=== PATIENT | female | born 1985 | race Caucasian/White ===

== ENCOUNTER → 2016-07-25 | Outpatient (CLI) | payer BC, OTHER ==
[~2016-07-25] MED LIST: BACTROOINT TOPICALLY; COUMADIN5 PO; ENOX40SY; FERROUS325 PO; THERGRAN
--- NOTE | 2016-07-26 03:44 | REP ---
Clinical: Anatomical evaluation. Comparison: None . Findings: Examination demonstrates a single live intrauterine in cephalic presentation. motion is identified by technologist. Placenta is noted anteriorly and grade zero without evidence for placenta previa or abruption. Amniotic fluid volume is normal. Cervix measures 4.7 cm in length and appears closed. No evidence for nuchal cord. Gestational age by LMP 20 weeks 0 days with MARIBEL 12/12/2016 . Gestational age by current measurements 20 weeks 4 days with MARIBEL 12/08/2016 . FHR equals 147 beats per minute. BPD 4.8 cm 20 weeks 3 days HC 18.1 cm 20 weeks 4 days AC 15.1 cm 20 weeks 2 days FL 3.5 cm 21 weeks 1 day HL 3.1 cm 20 weeks 3 days HC/AC ratio 1.20 Estimated weight 370 grams ( 72nd percentile). Anatomical assessment demonstrates normal structures including cranium, choroid plexus, cavum, cerebellum/posterior fossa, lungs, four-chamber heart/ left ventricular outflow tract, diaphragm, stomach, cord insertion/three-vessel cord, kidneys/bladder, spine, and extremities. Limited evaluation of the facial features and right cardiac ventricular outflow tract noted. Impression: Single live intrauterine in cephalic presentation. Appropriate interval growth. Anatomical limitations as noted above. Otherwise normal examination. Signed by Tanmay Esquivel MD 07/26/2016 03:35 A
== END ==
LOC: M RAD 13:43
PROVIDERS: ATTEND Advanced Practice Midwife
DX: Z34.82 Encounter for supervision of other normal pregnancy, second trimester (principal)

== ENCOUNTER → 2016-07-26 | Outpatient (CLI) | payer BC, OTHER ==
[2016-07-26 13:06] LABS: FREE T4 0.9 NG/DL (0.76-1.46)
== END ==
LOC: M WUC 09:56
PROVIDERS: ATTEND Advanced Practice Midwife
DX: Z34.82 Encounter for supervision of other normal pregnancy, second trimester (principal)

== ENCOUNTER → 2016-09-12 | Outpatient (CLI) | payer BC, OTHER ==
[2016-09-12 13:33] LABS: BASO % 0.2 % (0.0-1.0); EOS # 0.1 K/mm3 (0.0-0.50); EOS % 1.5 % (0.0-3.0); LARGE UNSTAINED CELL # 0.1 K/mm3 (0.0-0.4); LARGE UNSTAINED CELL % 0.7 % (0.0-4.0); LYMPH # 1.2 K/mm3 (1.5-4.5); LYMPH % 14.5 % (24.0-44.0); MEAN CORPUSCULAR HEMOGLOBIN 31.3 pg (27.0-33.0); MEAN CORPUSCULAR HGB CONC 34.8 g/dl (32.0-36.5); MONO # 0.5 K/mm3 (0.0-0.8); MONO % 5.5 % (0.0-5.0); NEUTROPHILS # 6.3 K/mm3 (1.8-7.7); NEUTROPHILS % 77.7 % (36.0-66.0); PLATELET COUNT, AUTOMATED 326 k/mm3 (150-450); WHITE BLOOD COUNT 8.2 K/mm3 (4.0-10.0)
== END ==
LOC: M LAB 10:06
PROVIDERS: ATTEND Specialist
DX: Z34.82 Encounter for supervision of other normal pregnancy, second trimester (principal)

== ENCOUNTER → 2016-09-23 | Outpatient (CLI) | payer BC, OTHER | LOC: M LAB 10:30 | PROVIDERS: ATTEND Specialist | DX: Z34.82 Encounter for supervision of other normal pregnancy, second trimester (principal) ==

== ENCOUNTER → 2016-10-25 | Outpatient (CLI) | payer BC, OTHER ==
[2016-10-25 15:14] LABS: FREE T4 0.92 NG/DL (0.76-1.46)
== END ==
LOC: M WUC 09:06
PROVIDERS: ATTEND Internal Medicine Endocrinology, Diabetes & Metabolism
DX: E06.3 Autoimmune thyroiditis (principal)

== ENCOUNTER → 2016-10-25 | Outpatient (CLI) | payer BC, OTHER ==
[2016-10-25 15:14] LABS: ALBUMIN/GLOBULIN RATIO 0.79 (1.00-1.93); BILIRUBIN,DIRECT 0.1 MG/DL (0.0-0.2); BILIRUBIN,TOTAL 0.3 MG/DL (0.2-1.0); FREE T4 0.92 NG/DL (0.76-1.46); TOTAL PROTEIN 6.8 GM/DL (6.4-8.2)
== END ==
LOC: M WUC 09:03
PROVIDERS: ATTEND Advanced Practice Midwife
DX: Z34.83 Encounter for supervision of other normal pregnancy, third trimester (principal); E03.9 Hypothyroidism, unspecified

== ENCOUNTER → 2016-10-27 | Outpatient (CLI) | payer BC, OTHER ==
--- NOTE | 2016-10-27 15:44 | REP ---
Duplex extremity venous ultrasound: Left lower extremity History: Left leg pain. History of left-sided DVT. 33 weeks gestation. Patient on Lovenox. Findings: The deep veins are anechoic and fully compressible from the groin to the popliteal fossa in the left lower extremity. Color flow imaging is homogeneous. Spectral Doppler interrogation demonstrates intact respiratory variation in flow and normal manual augmentation of flow. There is no evidence of deep vein thrombosis. Impression: Negative left lower extremity duplex venous ultrasound. No evidence of deep vein thrombosis. Signed by Tree Shultz MD 10/27/2016 03:35 P
== END ==
LOC: M RAD 14:54
PROVIDERS: ATTEND Advanced Practice Midwife
DX: M79.605 Pain in left leg (principal)

== ENCOUNTER → 2016-11-16 | Outpatient (REF) | payer BC, OTHER | LOC: M LAB REF 17:00 | PROVIDERS: ATTEND Specialist | DX: Z34.83 Encounter for supervision of other normal pregnancy, third trimester (principal) ==

== ENCOUNTER 2016-12-08 13:10 | Inpatient (IN) | payer BC, OTHER ==
[~2016-12-08] VITALS: Ht 167.6 cm; Wt 108.0 kg
[2016-12-08] MEDS ORDERED: LEVO75TA4 PO (13:21)
[2016-12-08] MEDS ORDERED: HEPA10004 SC (13:21)
[2016-12-08] MEDS ORDERED: PRENTAB9 PO (13:21)
[2016-12-08 13:28] VITALS: BP 114/68
[2016-12-08 14:04] LABS: MEAN CORPUSCULAR HEMOGLOBIN 30.4 pg (27.0-33.0); MEAN CORPUSCULAR VOLUME 86.7 fl (80.0-96.0); RED CELL DISTRIBUTION WIDTH 13.8 % (11.5-14.5)
[2016-12-08] MEDS ORDERED: miSOPROStol 50 MCG 1/2 TAB (S0191) As Ordered ONE (14:09)
[2016-12-08 14:12] VITALS: BP 109/59
[2016-12-08] MEDS ORDERED: miSOPROStol 50 MCG 1/2 TAB (S0191) PO SCH (14:15)
[2016-12-08 15:11] VITALS: BP 116/70
[2016-12-08 16:16] VITALS: BP 97/55
[2016-12-08 17:39] VITALS: BP 119/63
[2016-12-08] MEDS ORDERED: LR 1,000 ML IV ONE (18:30)
[2016-12-08] MEDS ORDERED: OXYTOCIN DRIP 30 UNITS in APPROPRIATE DILUENT 1 EA IV SCH (19:00)
[2016-12-08] MEDS ORDERED: FENTANYL 2MCG/ML ROPIVACAINE 0.2% IN 0.9% NACL 200ML IVBAG As Ordered ONE (19:00)
[2016-12-08] MEDS ORDERED: LR 1,000 ML IV SCH (19:00)
[2016-12-08] MEDS ORDERED: ePHEDrine SULFATE 25 MG/5 ML(5MG/ML) SYRINGE IV PRN (20:00)
[2016-12-08] MEDS ORDERED: diphenhydrAMINE INJ 50MG/ML VIAL (J1200) IV PRN (20:00)
[2016-12-08] MEDS ORDERED: REFRIGERATOR IV KEYS XX PRN (20:00)
[2016-12-08] MEDS ORDERED: NALOXONE INJ 0.4 MG/1 ML VIAL (J2310) IV PRN (20:00)
[2016-12-08] MEDS ORDERED: LACTATED RINGER'S 1000 ML IV PRN (20:00)
[2016-12-08] MEDS ORDERED: ONDANSETRON 4MG/2ML VIAL (J2405) IV PRN ×2 (20:00→23:45)
[2016-12-08] MEDS ORDERED: EPIDURAL/PCA KEYS XX PRN (20:00)
[2016-12-08] MEDS ORDERED: EPIDURAL COMMENT XX SCH (20:00)
[2016-12-08] MEDS ORDERED: FENTANYL/ROPIVACAINE/NACL BAG 200 ML EPIDURAL SCH (20:00)
--- NOTE | 2016-12-08 22:24 | HPE ---
DATE OF ADMISSION: 12/08/2016 HISTORY: A 31-year-old G3, P2 female at 39-4/7 weeks gestation by last menstrual period (LMP) consistent with an 11-week ultrasound who presents for labor induction. History is significant for prior deep vein thrombosis (DVT) in her left leg. She is currently on heparin treatment for the . COURSE: Patient initiated care at 9 weeks gestation on 05/11/2016. She was started on Lovenox since the onset of . She was subsequently switched to heparin in roughly 36 weeks. Her history is significant for DVT in her left leg during her first . MEDICAL HISTORY: 1. Lower extremity DVT. 2. Hypothyroidism. SURGICAL HISTORY: 1. Tonsillectomy. 2. Dilatation and curettage procedure. ALLERGIES: No known drug allergies. SOCIAL HISTORY: She denies cigarettes, drug or alcohol use. She is . FAMILY HISTORY: Noncontributory. PHYSICAL EXAMINATION: Afebrile, vital signs stable. She is in No apparent distress. Head and neck exam normal. Lungs clear. Heart regular rate and rhythm. Abdomen nontender, gravid. heart tone category 1. Cervix 3 cm, 70%, -2 station, vertex. Contractions irregular. Extremities nontender. ASSESSMENT: A 31-year-old G3, P2 female at 39-4/7 weeks gestation who presents for labor induction. Patient was admitted on 12/08/2016. She took her last dose of heparin on the evening of 12/07/2016. Risks of induction were discussed.
[2016-12-08] MEDS ORDERED: DOCUSATE SODIUM 100 MG CAP PO PRN (23:45)
[2016-12-08] MEDS ORDERED: METHYLERGONOVINE MALEATE 0.2 MG TAB PO PRN (23:45)
[2016-12-08] MEDS ORDERED: DIBUCAINE 1% OINTMENT 30GM TOP PRN (23:45)
[2016-12-08] MEDS ORDERED: MEASLES,MUMPS,RUBELLA VACCINE INJ (MMR-II) (90707) SC SCH (23:45)
[2016-12-08] MEDS ORDERED: OXYTOCIN DRIP 30 UNITS in APPROPRIATE DILUENT 1 EA IV ONE (23:45)
[2016-12-08] MEDS ORDERED: RHOGAM 300 MCG (1500 IU) INJ (J2790) IM SCH (23:45)
[2016-12-09 02:15] VITALS: BP 134/66
[2016-12-09] MEDS ORDERED: PRENATAL VITAMIN TAB PO SCH (09:00)
[2016-12-09] MEDS: ACETAMINOPHEN 500 MG TAB PO PRN ×2 (09:22→20:28)
[2016-12-09] MEDS: ENOXAPARIN 40 MG/0.4 ML SYRINGE (J1650) SC SCH (09:28)
--- NOTE | 2016-12-09 16:08 | DN ---
DATE: 12/08/2016 PREDELIVERY DIAGNOSES: 39 and 4/7ths weeks gestation, labor induction. POSTDELIVERY DIAGNOSIS: Delivered. PROCEDURES: Spontaneous vaginal delivery. SHIRT MAKER; Dr. Cash Oates ANESTHESIA: Epidural. PREPROCEDURE DIAGNOSIS: 38-5/7 weeks gestation in labor. POSTPROCEDURE DIAGNOSIS: Delivered. PROCEDURE: Spontaneous vaginal delivery. SURGEON: Dr. Cash Oates. ANESTHESIA: Epidural. ESTIMATED BLOOD LOSS: 300 mL. FINDINGS: 7 pound 10 ounce female infant, 9 and 10. DELIVERY SUMMARY: After a short second stage, the patient was had spontaneous delivery of a 7 pound 10 ounce female with 9 and 10 under epidural anesthesia. There is no nuchal cord. Shoulders delivered with ease. cried spontaneous and was handed to the mother. The cord was doubly clamped and cut. The placenta delivered spontaneously and appeared to be intact. Patient received IV Pitocin after delivery of the placenta. There were no vaginal lacerations present.
[2016-12-09 18:00] VITALS: BP 128/63
[2016-12-09] MEDS ORDERED: miSOPROStol 200 MCG TAB (S0191) As Ordered ONE (19:15)
[2016-12-10] MEDS: ACETAMINOPHEN 500 MG TAB PO PRN (05:11)
[2016-12-10 05:39] VITALS: BP 139/76
[2016-12-10] MEDS: ENOXAPARIN 40 MG/0.4 ML SYRINGE (J1650) SC SCH (08:16)
[2016-12-10] MEDS ORDERED: PRENATAL VITAMINS CHEWABLE TABLET PO SCH (09:00)
[2016-12-10] MEDS ORDERED: LOVE1INJ SC (09:46)
[2016-12-10] MEDS ORDERED: ACET50TA PO (09:46)
== END 2016-12-10 10:10 | disposition home or self-care (01) | DRG 560 ==
LOC: M LDI 13:10 → M OBS 12-09 01:49
PROVIDERS: ADMIT Specialist; ATTEND Specialist
PROC: 10E0XZZ Delivery of Products of Conception, External Approach (ICD-10-PCS; principal; 2016-12-08)
PROC: 3E0DXGC Introduction of Other Therapeutic Substance into Mouth and Pharynx, External Approach (ICD-10-PCS; 2016-12-08)
DX: O99.284 Endocrine, nutritional and metabolic diseases complicating childbirth (principal); E03.9 Hypothyroidism, unspecified; Z37.0 Single live birth; Z3A.39 39 weeks gestation of pregnancy; Z79.01 Long term (current) use of anticoagulants; Z86.718 Personal history of other venous thrombosis and embolism

== ENCOUNTER → 2018-03-02 | Outpatient (CLI) | payer OTHER, BC ==
[2018-03-02 18:49] LABS: FREE T4 0.87 NG/DL (0.76-1.46)
== END ==
LOC: M WUC 11:53
DX: E06.3 Autoimmune thyroiditis (principal)
CPT/HCPCS: 84443

== ENCOUNTER → 2018-05-12 | Outpatient (CLI) | payer OTHER, BC ==
[2018-05-12 13:58] LABS: FREE T4 0.72 NG/DL (0.76-1.46)
== END ==
LOC: M WUC 09:15
DX: E06.3 Autoimmune thyroiditis (principal)
CPT/HCPCS: 84443

== ENCOUNTER → 2018-08-15 | Outpatient (CLI) | payer OTHER, BC ==
[~2018-08-15] MED LIST changes: +HEPA10004 SC; +LEVO75TA4 PO; +LOVE1INJ SC; +MAPA500T2 PO; +PRENTAB9 PO
[2018-08-15 17:06] LABS: FREE T4 0.99 NG/DL (0.76-1.46); THYROID STIMULATING HORMONE 7.37 uIU/ML (0.358-3.740)
== END ==
LOC: M WUC 11:54
PROVIDERS: ATTEND Nurse Practitioner Family
DX: E06.3 Autoimmune thyroiditis (principal)

== ENCOUNTER → 2018-11-21 | Outpatient (CLI) | payer OTHER, BC ==
[~2018-11-21] MED LIST changes: -ENOX40SY; +LOVE1INJ
[2018-11-21 14:34] LABS: FREE T4 1.2 NG/DL (0.76-1.46); THYROID STIMULATING HORMONE 4.36 uIU/ML (0.358-3.740)
== END ==
LOC: M WUC 10:39
PROVIDERS: ATTEND Nurse Practitioner Family
DX: E06.3 Autoimmune thyroiditis (principal)

== ENCOUNTER → 2019-03-27 | Outpatient (CLI) | payer OTHER, BC ==
[2019-03-27 16:52] LABS: FREE T4 1.35 NG/DL (0.76-1.46); THYROID STIMULATING HORMONE 1.89 uIU/ML (0.358-3.740)
== END ==
LOC: M WUC 12:38
PROVIDERS: ATTEND Nurse Practitioner Family
DX: E06.3 Autoimmune thyroiditis (principal)

== ENCOUNTER → 2019-09-30 | Outpatient (CLI) | payer OTHER, BC ==
[2019-09-30 16:29] LABS: FREE T4 1.11 NG/DL (0.76-1.46); THYROID STIMULATING HORMONE 2.26 uIU/ML (0.358-3.740)
== END ==
LOC: M WUC 11:37
PROVIDERS: ATTEND Nurse Practitioner Family
DX: E06.3 Autoimmune thyroiditis (principal)

== ENCOUNTER → 2020-12-23 | Outpatient (CLI) | payer OTHER, BC ==
[2020-12-23 20:11] LABS: FREE T4 1.2 NG/DL (0.76-1.46); THYROID STIMULATING HORMONE 2.14 uIU/ML (0.358-3.740)
== END ==
LOC: M WUC 15:05
PROVIDERS: ATTEND Internal Medicine
DX: E06.3 Autoimmune thyroiditis (principal)

== ENCOUNTER → 2021-10-05 | Outpatient (CLI) | payer OTHER, BC ==
[2021-10-05 13:56] LABS: HEMATOCRIT 42.1 % (36.0-47.0); HEMOGLOBIN 14.5 g/dl (12.0-15.5); MEAN CORPUSCULAR HEMOGLOBIN 31.1 pg (27.0-33.0); MEAN CORPUSCULAR HGB CONC 34.4 g/dl (32.0-36.5); MEAN CORPUSCULAR VOLUME 90.3 fl (80.0-96.0); PLATELET COUNT, AUTOMATED 343 10^3/uL (150-450); RED BLOOD COUNT 4.66 10^6/uL (4.00-5.40); WHITE BLOOD COUNT 8.3 10^3/uL (4.0-10.0)
[2021-10-05 15:17] LABS: HEPATITIS C VIRUS ABY INDEX 0.1 INDEX (<0.8); HIV 1&2 SCREEN CENTAUR NEGATIVE (NEGATIVE)
[2021-10-05 15:38] LABS: GC DNA AMPLIFICATION NEGATIVE (NEGATIVE)
== END ==
LOC: M PLALAB 11:53
PROVIDERS: ATTEND Specialist
DX: Z34.80 Encounter for supervision of other normal pregnancy, unspecified trimester (principal)

== ENCOUNTER → 2021-11-19 | Outpatient (CLI) | payer BC, OTHER | LOC: M WHC 06:44 | PROVIDERS: ATTEND Obstetrics & Gynecology | DX: Z36.89 Encounter for other specified antenatal screening (principal); Z3A.20 20 weeks gestation of pregnancy ==

== ENCOUNTER → 2021-12-14 | Outpatient (CLI) | payer BC, OTHER | LOC: M WHC 11:30 | PROVIDERS: ATTEND Obstetrics & Gynecology | DX: Z36.2 Encounter for other antenatal screening follow-up (principal); O32.1XX0 Maternal care for breech presentation, not applicable or unspecified; Z3A.23 23 weeks gestation of pregnancy ==

== ENCOUNTER → 2022-01-14 | Outpatient (CLI) | payer BC, OTHER ==
[2022-01-14 11:50] LABS: HEMATOCRIT 37.3 % (36.0-47.0); HEMOGLOBIN 12.6 g/dl (12.0-15.5); MEAN CORPUSCULAR HEMOGLOBIN 30.7 pg (27.0-33.0); MEAN CORPUSCULAR HGB CONC 33.8 g/dl (32.0-36.5); PLATELET COUNT, AUTOMATED 281 10^3/uL (150-450); WHITE BLOOD COUNT 7.7 10^3/uL (4.0-10.0)
[2022-01-14 14:19] LABS: GC DNA AMPLIFICATION NEGATIVE (NEGATIVE)
== END ==
LOC: M PLALAB 10:14
PROVIDERS: ATTEND Obstetrics & Gynecology
DX: Z36.89 Encounter for other specified antenatal screening (principal); Z3A.21 21 weeks gestation of pregnancy

== ENCOUNTER → 2022-01-17 | Outpatient (CLI) | payer BC, OTHER | LOC: M LAB 08:05 | PROVIDERS: ATTEND Obstetrics & Gynecology | DX: O99.810 Abnormal glucose complicating pregnancy (principal) ==

== ENCOUNTER → 2022-03-11 | Outpatient (REF) | payer OTHER | LOC: M PLALAB 12:06 | PROVIDERS: ATTEND Advanced Practice Midwife | DX: Z36.85 Encounter for antenatal screening for Streptococcus B (principal); Z3A.36 36 weeks gestation of pregnancy ==

== ENCOUNTER → 2023-08-14 | Outpatient (CLI) | payer BC, OTHER ==
[~2023-08-14] MED LIST changes: +HEPA100I26 IV; +TUMS750C5 PO
[2023-08-14 13:20] LABS: ALKALINE PHOSPHATASE 117 U/L (46-116); ALT/SGPT 19 U/L (7.0-40); AST/SGOT 17 U/L (<34); BILIRUBIN,TOTAL 0.4 MG/DL (0.3-1.2); BLOOD UREA NITROGEN 13 MG/DL (9-23); CALCIUM LEVEL 8.8 MG/DL (8.5-10.1); CARBON DIOXIDE LEVEL 29 MMOL/L (20-31); CHLORIDE LEVEL 108 MMOL/L (98-107); CHOLESTEROL LEVEL 173 MG/DL (<200); CHOLESTEROL RISK RATIO 3.91 (<5); CREATININE FOR GFR 0.64 MG/DL (0.55-1.30); GLOMERULAR FILTRATION RATE > 60.0 (>60); GLUCOSE, FASTING 88 MG/DL (60-100); HDL CHOLESTEROL 44.2 MG/DL (>40); LDL CHOLESTEROL 111.2 MG/DL (<100); NON-HDL-C 128.8 MG/DL; POTASSIUM SERUM 4.7 MMOL/L (3.5-5.1); SODIUM LEVEL 140 MMOL/L (136-145); TRIGLYCERIDES LEVEL 88 MG/DL (<150)
[2023-08-14 13:21] LABS: THYROID STIMULATING HORMONE 6.415 uIU/ML (0.55-4.78)
== END ==
LOC: M WUC 09:44
PROVIDERS: ATTEND Internal Medicine
DX: E03.9 Hypothyroidism, unspecified (principal)